=== PATIENT | male | born 1965 | race Caucasian/White ===

== ENCOUNTER 2025-06-13 15:04 | Outpatient (AMB) | payer MEDICAID, SELFPAY ==
--- NOTE | 2025-06-13 15:24 | A.OFFVIS_ITS ---
Intake Visit Reasons: nephrolithiasis/Weak Urinary Stream(set) Intake Note: Reason for Visit: New Patient Recurrent Nephrolithiasis/ Weak Urinary Stream Urology Meds: Blood Thinners: None Labs: None Imaging: Abdomin/Pelvis CT (03/20/2025) Last PVR: 0ML Family History: Prostate Ca? No Bladder Ca? No Kidney Ca? No Chief Service Dispatcher: Chief Service Dispatcher Present Accompanied by: Family/Other Allergies No Known Allergies Allergy (Verified 06/13/25 15:28) HPI Comments Details: Carlos Eduardo is a pleasant Latvian-speaking male. He is a patient of Dr.Del Vargas. He is seen for the following urologic conditions - recurrent nephrolithiasis - lower urinary tract symptoms Translation provided by son Recurrent nephrolithiasis Presentation in March to emergency room CT scan 2 mm stone found in bladder suggestive of passage Did notice improved urinary symptoms whilst on tamsulosin Trial tamsulosin Three-month follow-up bladder ultrasound [facility] Medical History (Updated 06/13/25 @ 16:09 by Elieser Henson MD) Weak urinary stream Avascular necrosis of bone of right hip Generalized abdominal pain Mesenteric adenitis Recurrent nephrolithiasis Review of Systems Const Denies chills and Denies fever(s) Card Reports no additional complaints and Denies syncope Resp Denies cough GI Denies abdominal pain and Denies heartburn Reports as per HPI and Denies change in libido Neuro Denies syncope Psych Denies change in libido Endo Denies change in libido Physical Exam Const General: cooperative, healthy appearing, comfortable and no acute distress Orientation/consciousness: patient oriented x3 HEENT Face and sinus: Yes normal facial exam Mouth: moist mucous membranes Neck Neck: Yes normal visual inspection, Yes full ROM and Yes trachea midline Chest Chest palpation & inspection: normal inspection of the chest Resp Effort & Inspection: normal respiratory effort, able to speak in complete sentences and no respiratory distress GI Inspection: Yes normal to inspection Back/Spine/Pelvis Cervical Spine: normal cervical lordosis Thoracic/Lumbar Spine: thoracic and lumbar spine normal to inspection Skin General skin exam: no rashes or lesions noted Neuro General: patient oriented x3, gait normal, tone normal and moves all extremities Extrem General: Yes normal to inspection and Yes capillary refill normal Assessment & Plan Assessment & Plan (1) Recurrent nephrolithiasis: Code(s): N20.0 - Calculus of kidney Category: Medical (2) Weak urinary stream: Code(s): R39.12 - Poor urinary stream Category: Medical Plan Three-month follow-up bladder ultrasound Orders: Orders US bladder 3 Months R39.12 - Poor urinary stream Medications: New tamsulosin (Flomax) 0.4 mg PO BEDTIME 30 tabs 1RF 30 days R39.12 - Poor urinary stream Patient Instructions: This note is constructed using voice recognition software. While every effort has been made to ensure accuracy remediation project engineer errors may have been included. Imaging studies, laboratory and physical exam results were discussed and reviewed in detail. No major barriers to patient understanding were identified. An opportunity to ask questions regarding the treatment plan was provided. All questions were answered. The patient expressed understanding and agreement with the above treatment plan. The patient is aware they should contact our office by phone for worsening of their current condition or the appearance of new urologic symptoms. Compliance is encouraged with any medications and followup testing that is ordered. It is a privilege to participate in the urologic care of your patient. If you have any questions or concerns regarding treatment for the above conditions, or other urologic issues, please do not hesitate to contact me. The office telephone contact is [phone]. Sincerely, Dr Elieser Henson MD, [facility] - Urology Compassionate Specialist Care for the Genitourinary System Coding Level of Care Code New Pt Level 4 (13260) Diagnoses Recurrent nephrolithiasis N20.0 Weak urinary stream R39.12
--- OUTSIDE RECORDS SUMMARY | 2025-06-13 18:05 | XMS_ITS | Clinical Summary ---
Author Organization [address] [facility] Address [address] [place] [address] Phone Care Team Providers Care Supervisor Vendor Quality Name Role Phone Eda Gamboa Primary Care Provider [phone] Encounters Date Type Department Care Team Description 04/18/2025 Telephone Gastroenterology - [place] [facility] [address] [facility] [address] [place] [address] Anu Suazo MD from Last 3 Months Social History Tobacco Use Types Packs/Day Years Used Date Smoking Tobacco: Never Assessed Sex and Gender Information Value Date Recorded Sex Assigned at Not on file Legal Sex Male 3:11 PM EDT Gender Identity Not on file Sexual Orientation Not on file Plan of Treatment Health Maintenance Due Date Last Done Comments Colorectal Cancer Screening: Colonoscopy 1967 DTaP,Tdap,and Td Vaccines (1 - Tdap) 1986 Hepatitis B Vaccines (1 of 3 - 19+ 3-dose series) 1986 Pneumococcal Vaccine: 50+ Ye ars (1 of 1 - PCV) 2017 Zoster Vaccines (1 of 2) 2017 Depression Screening 07/12/2024 COVID-19 Vaccine ( - 2024-2 6 season) 2025 Influenza Vaccine (#1) 2025 Cholesterol Screening (Lipid Panel) 04/18/2025 HIV Screening 04/18/2025 Hepatitis C Screening 04/18/2025 Social Influencers of Health Screening 04/18/2025 RSV Immunization Adult Patie nts (1 - 1-dose 75+ series) 2042 HIB Vaccines Aged Out No longer eligi ble based on patient's age to complete this topic HPV Vaccines Aged Out No longer eligi ble based on patient's age to complete this topic Hepatitis A Vaccines Aged Out No long er eligible based on patient's age to complete this topic IPV Vaccines Aged Out No longer eligi ble based on patient's age to complete this topic MMR Vaccines Aged Out No longer eligi ble based on patient's age to complete this topic Meningococcal ACWY Vaccine Aged Out N o longer eligible based on patient's age to complete this topic Meningococcal B Vaccine Aged Out No l onger eligible based on patient's age to complete this topic RSV Immunization Patients Un mauricio 20 months Aged Out No longer eligible b ased on patient's age to complete this topic Varicella Vaccines Aged Out No longer eligible based on patient's age to complete this topic Insurance MEDICAID - [place] Care Teams Supervisor Vendor Quality Relationship Specialty Start Date End Date Eda Gamboa [address] [place] [address] PCP - General 04/18/25
== END 2025-06-13 16:17 | disposition home or self-care (01) ==
LOC: HO.HUSH 15:04
PROVIDERS: PCP Nurse Practitioner; Visit Provider Urology
DX: N20.0 Calculus of kidney (principal); R39.12 Poor urinary stream
CPT/HCPCS: 99204

== ENCOUNTER → 2025-06-13 15:04 | Outpatient (BNVA) | payer MEDICAID, SELFPAY | PROVIDERS: PCP Nurse Practitioner; Visit Provider Urology | DX: N20.0 Calculus of kidney (principal); R39.12 Poor urinary stream | CPT/HCPCS: 99202 ==